=== PATIENT | male | born 1965 | race Caucasian/White ===

== ENCOUNTER → 2016-05-07 | Outpatient (CLI) | payer OTHER ==
[2006-02-04 10:20] VITALS: TEMP 97.7
== END ==
LOC: COL.RAD 10:35
DX: M25.551 Pain in right hip (principal)
CPT/HCPCS: J3301; Q9967

== ENCOUNTER → 2016-05-30 | Outpatient (CLI) | payer OTHER ==
[2006-02-04 10:20] VITALS: TEMP 97.7
== END ==
LOC: COL.RAD 08:09
DX: M25.551 Pain in right hip (principal)
CPT/HCPCS: J3301; Q9967

== ENCOUNTER → 2016-09-03 | Outpatient (CLI) | payer OTHER ==
[2006-02-04 10:20] VITALS: TEMP 97.7
== END ==
LOC: COL.LAB 16:46
DX: Z96.641 Presence of right artificial hip joint (principal)